=== PATIENT | female | born 1970 ===

== ENCOUNTER 2016-12-21 08:48 | Outpatient (CLI) | payer MEDICARE ==
--- NOTE | 2016-12-21 13:47 | Mammography Report ---
BILATERAL DIGITAL SCREENING MAMMOGRAM with CAD: 12/21/16 08:48:00 CLINICAL: Routine screening. COMPARISON:03/01/14 FINDINGS: The breasts are almost entirely fatty. No mass, architectural distortion or suspicious calcifications. IMPRESSION: No mammographic evidence of malignancy. BI-RADS CATEGORY: 1 - - Negative RECOMMENDATION: Routine mammographic screening in one year. COMMENT: Patient follow-up letters are generated by our [employer] application.
== END 2016-12-21 08:49 | disposition home or self-care (01) ==
LOC: SPVWC 08:48
DX: Z12.31 Encounter for screening mammogram for malignant neoplasm of breast (principal)
CPT/HCPCS: 77067; G0202